=== PATIENT | female | born 1990 | race Caucasian/White ===

== ENCOUNTER 2023-12-09 01:06 | Emergency (ER) | payer BC, SELFPAY ==
[2023-12-09 01:08] VITALS: BP 114/87
--- NOTE | 2023-12-09 01:32 | ED.GENMED ---
History of Present Illness
General
Chief Complaint: Fatigue
Source: patient
Exam Limitations: none
Time Seen by Provider: 12/09/23 01:13
Nursing documentation reviewed up to this point in time: agreed with
History of Present Illness
History of Present Illness:
Patient is a 33 y.o female presenting to the emergency department with acute onset nausea. Patient states that around 7 PM she had a wave of intense nausea and dizziness. She tried to lay down and let symptoms pass although they persisted. She
did have an episode of vomiting around 12:30 AM. Patient states that throughout this time she was having some auditory changes, as well describing a 'horn sounding '. Symptoms did occur shortly after patient took her medications. Patient has been
taking low-dose naltrexone for treatment of long COVID/fatigue which she started 5 days ago. Patient states that she presents to the emergency department due to persistent nausea and concerned that she may be poisoned from her naltrexone.
Patient has been dealing with chronic severe fatigue/malaise since having COVID at the end of September. She is followed multiple doctors back in [place] where she lives. She did recently start seeing a neurologist due to some of her symptoms who ordered
an MRI of her brain which was scheduled for yesterday although patient was unable to complete due to her not feeling well.
Patient has been receiving NAD injections along with this new prescription for naltrexone for long COVID/fatigue.
Review of Systems
Review of Systems
Allergies reviewed?: Yes
All Other Systems: ROS reviewed and negative except as documented in HPI and ROS
Phy Exam
Physical Exam
Physical Exam:
Vitals: Patient's vital signs are stable. Afebrile
General: Patient is mildly anxious appearing.
Skin: Warm and dry, no rashes or lesions
Head: Normocephalic, atraumatic
Eyes: Sclera nonicteric. EOMs intact. No nystagmus.
Throat: Protecting airway
Neck: Normal ROM, no cervical spine tenderness, no meningismus
Cardiac: Regular rate and rhythm, no murmurs.
Pulm: Normal respiratory effort, no wheezes, rales, rhonchi heard on exam.
Abdomen: Abdomen soft. No abdominal tenderness. No rebound tenderness or guarding
Extremities: No evidence of cyanosis or edema. Great distal pulses
Neuro: AAOx3. CN II-XII intact. No focal neurologic deficits. Normal finger-nose. Speech fluid. Moving all extremities
Psychiatric: Normal affect.
Course
Orders/Labs/Results
Orders:
Orders
12/09/23 01:32
Ondansetron Orally Disint [Zofran Odt (Orally Disintegrating)] 4 mg PO NOW STA
12/09/23 01:56
CT Head W/o Iv Contrast Urgent
Comment:
Reason For Exam: acute onset dizziness/nausea, auditory symptoms
12/09/23 02:31
Ondansetron Orally Disint [Zofran Odt (Orally Disintegrating)] 4 mg PO NOW STA
12/09/23 03:47
Complete Blood Count/With Diff Urgent
HCG, Serum Qualitative Screen Urgent
Comment: ADDED
12/09/23 03:50
0.9% Sodium Chloride 1000 ml [Nss] 1,000 ml IV BOLUS
Prochlorperazine [Compazine] 10 mg IV NOW STA
12/09/23 03:51
Add On- LAB Urgent
Tests Added?: hcg qualitative
Abnormal Lab Results
12/09/23
03:47
MCH 31.4 H pg
(27.0-31.0)
Lymphocytes % 19.0 L %
(20.5-51.1)
12/09/23 03:47
12/09/23 04:13
Vital Signs
Initial and Last Documented VS:
Initial Vital Signs
Temp Pulse Resp BP Pulse Ox
98.2 F 83 16 114/87 99
12/09/23 01:08 12/09/23 01:08 12/09/23 01:08 12/09/23 01:08 12/09/23 01:08
Last Documented Vital Signs
Temp Pulse Resp BP Pulse Ox
98.2 F 63 16 129/71 98
12/09/23 01:08 12/09/23 03:48 12/09/23 03:48 12/09/23 03:48 12/09/23 03:48
MDM/Problems Addressed
Differential Diagnosis Includes:
Not limited to: Medication side effect, dehydration, gastroenteritis, long COVID, viral syndrome, BPPV, labyrinthitis, etc.
MDM/Problems Addressed:
33-year-old female with long COVID presenting with intractable nausea acute in onset this evening around 7 PM. Did have brief episode of dizziness, as well although that has since resolved. Symptoms started shortly after taking patient's new
prescription naltrexone for long COVID fatigue. Did report some auditory changes as well that have resolved. Vital signs stable. Exam as above. Abdomen soft and nontender. No focal neurologic deficits. Given patient's history of COVID and new
onset neurologic symptoms�a CT was obtained without acute findings. Unsure exact etiology of nausea/dizziness although suspect likely medication reaction from naltrexone which patient recently started taking. Given benign abdominal exam and
afebrile�low suspicion for acute abdominal process, do not feel imaging is necessary. Patient initially declined IV fluids, labs and was given 2 doses of ODT Zofran with minimal improvement in symptoms. Patient did agree to IV placement and was
given IV fluids and IV Compazine. On reassessment�patient appears much improved following Compazine and fluids. Patient tolerated a yogurt and water by mouth. Patient ambulating with steady gait. Given improvement in symptoms�feel patient is
stable for discharge with prescription for Zofran. Return precautions discussed at length. Advised to discontinue naltrexone until further evaluation by prescribing doctor. Patient will follow-up with neurology, primary care for further
evaluation/management. Patient seen with attending physician.
Chronic conditions affecting care:
N/A
Acute Exacerbation and/or Progression of Chronic Illness:
N/A
*Pulse Oximetry
Patient hypoxic: no
*EKG
Interpreted by ED Provider?: NA
*Dog Food Dough Mixer Interpretation
Rate: Dog Food Dough Mixer- N/A
*Critical Care Note
Total Time (30-74mins, 75-104mins- exclusive of procedures): Not Applicable
Update Note
Update Note:
Update 2:32AM:
ED Attending Note
-
Portions of this chart may have been created with voice recognition software.� Occasional wrong word or��sound alike� substitutions may have occurred due to the inherent limitations of voice recognition software.
Discharge Plan
Departure
Patient Disposition: Home (Routine Discharge)
Date of Disposition: 12/09/23
Time of Disposition: 04:51
Patient with high blood pressure during this ER visit?: No
Condition: Good
Covid-19: Not Applicable
Discharge Problem:
Nausea, Dizziness
Instructions: Nausea and Vomiting, Adult ED
Prescriptions:
New
ondansetron 4 mg tablet,disintegrating
4 mg PO Q8H PRN (Reason: nausea and vomiting) Qty: 10 0RF
prochlorperazine maleate [Compazine] 10 mg tablet
10 mg PO Q8H PRN (Reason: nausea and vomiting) Qty: 7 0RF
Referrals:
PRIVATE,PHYSICIAN [Family Provider] -
Activity Restrictions/Additional Instructions:
RETURN TO THE EMERGENCY DEPARTMENT WITH ANY PERSISTENT DIZZINESS/LIGHTHEADEDNESS, INTRACTABLE NAUSEA/VOMITING, SEVERE ABDOMINAL PAIN, WORSENING IN CURRENT SYMPTOMS, OR ANY OTHER CONCERNS
-As discussed�you should discontinue the naltrexone. You should follow-up with the provider who prescribes medication for further management
-You were given a prescription for Zofran. An additional prescription was provided for Compazine. You can take this up to every 8 hours as needed for persistent nausea/vomiting. You should not take both of these medications together. It is
important stay well-hydrated.
-You should follow-up with primary care and neurology for further evaluation/management. You should try to reschedule your MRI as previously scheduled.
Monitor your symptoms closely and return to the emergency department with any acute worsening/new symptoms
Interventions
Interventions:
*Risk Screen - Suicide Last Done: 12/09/23 01:08
*General Assessment Last Done: 12/09/23 04:13
*Neglect/Abuse Screening Last Done: 12/09/23 04:13
ED- Fall Risk Assessment Last Done: 12/09/23 04:13
*ED COVID-19 Vaccine History Last Done: 12/09/23 04:13
*Nursing Disposition Last Done: 12/09/23 05:02
Discharge Date and Time
Discharge Date/Time: 12/09/23 05:02
Print Language: VIET[place]
[2023-12-09] MEDS: ZOFRAN ODT (ORALLY DISINTEGRATING) 4 MG PO ×2 (01:39→02:34)
[2023-12-09 03:48] VITALS: BP 129/71
[2023-12-09] MEDS: NSS 1000 IV (03:55)
[2023-12-09] MEDS: COMPAZINE 10 MG IV (03:55)
[2023-12-09 04:03] LABS: % Basophils 0.8 % (0-2); % Eosinophils 0.3 % (0-6); % Immature Granulocytes 0.4 % (0-0.5); % Monocytes 4.3 % (1.7-9.3); % Neutrophils 75.2 % (42.2-75.2); Absolute Basophils 0.1 10^3/uL (0-0.2); Absolute Lymphocytes 1.4 10^3/uL (1.2-3.4); Absolute Monocytes 0.3 10^3/uL (0.1-0.6); Absolute Neutrophils 5.5 10^3/uL (1.4-6.5); Hematocrit 37.6 % (37.0-47.0); Hemoglobin 13.9 g/dL (12.0-16.0); Mean Corpuscular Hgb 31.4 pg (27.0-31.0); Mean Corpuscular Volume 84.9 fL (81.0-99.0); Mean Platelet Volume 8.9 fL (7.4-10.4); Nucleated Red Blood Cells % 0 %; Platelet Count 321 10^3/uL (130-400); Red Blood Cell Count 4.43 10^6/uL (4.20-5.40); Red Cell Dist. Width 11.5 % (11.5-14.5); White Blood Cell Count 7.3 10^3/uL (4.8-10.8)
== END 2023-12-09 05:02 | disposition home or self-care (01) ==
LOC: EMR 01:06
PROVIDERS: Physician Assistant; EMERGENCY PHYSICIAN Emergency Medicine
DX: R42 Dizziness and giddiness (principal); R11.2 Nausea with vomiting, unspecified; U09.9 Post COVID-19 condition, unspecified; R53.83 Other fatigue; R53.81 Other malaise; F41.9 Anxiety disorder, unspecified; Z79.899 Other long term (current) drug therapy
CPT/HCPCS: 99284; 96374; 96361; 70450; 85025